=== PATIENT | female | born 1975 | race Caucasian/White ===

== ENCOUNTER 2018-03-14 11:36 | Emergency (ER) | payer OTHER ==
[~2018-03-14] VITALS: Ht 170.2 cm; Wt 95.3 kg
[~2018-03-14 11:36] MED LIST: ALPRAZOLAM2 M2 PO; FUROSEMIDE20 M1 PO; METFORMIN HCL850 M1 PO; SERTRALINE HCL100 MG PO; SPIRONOLACTONE100 M1 PO
--- NOTE | 2018-03-14 12:51 | RADIOLOGY REPORT ---
EXAMINATION: XR ELBOW, RIGHT CLINICAL INFORMATION: Pain status post fall. COMPARISON: Right elbow radiographs 01/29/2014. TECHNIQUE: 4 views right elbow. FINDINGS: There is no acute fracture or dislocation. Joint spaces are maintained. No joint effusion. Soft tissues are unremarkable. IMPRESSION: Unremarkable radiographs right elbow.
[2018-03-14] MEDS ORDERED: IBUPROFEN800 M1 PO (13:49)
--- NOTE | 2018-03-14 13:49 | ED UPPER/LOWER EXTREMITY COMPL ---
History of Present Illness General Chief Complaint: Upper Extremity Injury Stated Complaint: RT ELBOW PAIN XS 1 YEAR FELL YESTERDAY NOW WORSE Source: patient Exam Limitations: no limitations Vital Signs & Intake/Output Vital Signs & Intake/Output Vital Signs Date Time Temp Pulse Resp B/P B/P Pulse O2 O2 Flow FiO2 Mean Ox Delivery Rate 03/14 1407 97.5 79 18 135/65 97 Room Air 03/14 1150 97.5 84 18 120/87 99 Room Air Allergies Coded Allergies: ibuprofen (Severe, GI DISTRESS 10/27/16) ketorolac (Severe, SOB 10/27/16) Reconcile Medications Alprazolam 2 MG TABLET 1 TAB PO BIDP PRN ANXIETY (Reported) Furosemide 20 MG TABLET 1 TAB PO DAILY PRN WATER PILL (Reported) Ibuprofen 800 MG TABLET 1 TAB PO TID pain Metformin HCl 850 MG TABLET 1 TAB PO BID DIABETES (Reported) Sertraline HCl 100 MG TABLET 1 TAB PO DAILY MENTAL HEALTH (Reported) Spironolactone 100 MG TABLET 1 TAB PO DAILY WATER PILL (Reported) Triage Note: 42F FELL TWO DAYS AGO ONTO RIGHT ELBOW, NOW HAS LUMP AND PAIN. HAS BEEN TAKING ALEVE AND TYLENOL WITH SOME RELIEF. REPORTS HITTING HEAD BUT DENIES LOC THINNERS OR HEAD/NECK PAIN. Triage Nurses Notes Reviewed? yes Onset: Abrupt Duration: day(s): (2), constant, continues in ED Timing: recent history Severity: moderate, severe Pain/Injury Location: Right: Elbow. Method of Injury: fall No Modifying Factors: none : No Patient currently breastfeeds: No HPI: 42-year-old female comes into the emergency room for further evaluation of right elbow pain. Patient reports that 2 days ago she fell while going up cement steps onto her right shoulder and right elbow. She reports that she's been expansion a chronic issue with pain in her right shoulder that radiates down to her elbow for about a year. She denies any chest pain shortness of breath. Denies numbness associated symptoms. Comes in with some swelling. Pain with range of motion. She reports that she bumped her head but no loss of consciousness no headache or vomiting. (Nghia Chi) Past History Travel History Traveled to [place] past 21 day No Medical History Any Pertinent Medical History? see below for history Cardiovascular: hypertension Respiratory: SLEEP APNEA Endocrine: CUSHINGS DISEASE Tetanus Vaccine: 04/07/13 Surgical History Surgical History: non-contributory Psychosocial History What is your primary language Amharic Tobacco Use: Current Daily Use Daily Tobacco Use Amount/Type: => 5 Cigarettes daily Family History Hx Contributory? No (Nghia Chi) Review of Systems Review of Systems Constitutional: Reports: no symptoms. EENTM: Reports: no symptoms. Respiratory: Reports: no symptoms. Cardiovascular: Reports: no symptoms. Gastrointestinal/Abdominal: Reports: no symptoms. Genitourinary: Reports: no symptoms. Musculoskeletal: Reports: see HPI. Skin: Reports: no symptoms. Neurological/Psychological: Reports: no symptoms. Hematologic/Endocrine: Reports: no symptoms. Immunological: Reports: no symptoms. All Other Systems: Reviewed and Negative (Nghia Chi) Physical Exam Physical Exam General Appearance: well developed/nourished, mild distress Head: atraumatic Eyes: Bilateral: normal appearance. Ears, Nose, Throat: normal ENT inspection, hearing grossly normal Neck: normal inspection Cardiovascular/Respiratory: no respiratory distress Back: normal inspection Shoulder Right: soft tissue tenderness, limited range of motion Elbow Right: soft tissue tenderness, limited range of motion, soft tissue tenderness distal humerus, soft tissue tenderness proximal humerus Neurologic/Tendon: normal sensation, normal motor functions, normal tendon functions, responds to pain, no evidence tendon injury, no pulse deficit Skin: intact, normal color, warm/dry (Nghia Chi) Progress Differential Diagnosis: contusion, dislocation, fracture, septic arthritis, sprain, tendon injury, tendinitis Plan of Care: Orders Procedure Date/time Status Durable Medical Equipment 03/14 1350 Active Diagnostic Imaging: Viewed by Me: Radiology Read. Discussed w/RAD: Radiology Read. Radiology Impression: PATIENT: TERRY ABDI PRESENT AGE: 42 PATIENT ACCOUNT NO: [id number] : 73 LOCATION: [facility] ORDERING PHYSICIAN: Nghia AHN SERVICE DATE: 03/14/18 EXAM TYPE: RAD - XRY-SHOULDER COMPLETE-RIGHT EXAMINATION: XR SHOULDER, RIGHT CLINICAL INFORMATION : Pain status post fall. Question proximal humeral fracture. COMPARISON: No relevant prior imaging. TECHNIQUE: 4 views right shoulder were obtained. FINDINGS: There is a small focus of coarse calcification along the lateral margin of the humeral head that may represent tendinous calcification of the long head biceps tendon. There is no acute fracture and no dislocation. The glenohumeral joint and acromioclavicular joint are unremarkable. There is preservation of the acromiohumeral interval. Soft tissues are unremarkable. Visualized portions of the right upper hemithorax reveal no abnormal finding. IMPRESSION: Suspected tendinous calcification along the long head biceps tendon. Otherwise unremarkable examination. No acute fracture and no dislocation. DICTATED BY: Marquise Gee MD DATE/TIME DICTATED:03/14/181344 HYDROMETER FINISHER:TRAMAINE DATE/TIME TRANSCRIBED:03/14/181344 CONFIDENTIAL, DO NOT COPY WITHOUT APPROPRIATE AUTHORIZATION. <Electronically signed in Other Vendor System> SIGNED BY: Marquise Gee MD 03/14/18 1350, PATIENT: TERRY ABDI PRESENT AGE: 42 PATIENT ACCOUNT NO: [id number] : 73 LOCATION: [facility] ORDERING PHYSICIAN: Remedios AHN SERVICE DATE: 03/14/18 EXAM TYPE: RAD - XRY-ELBOW 3 OR MORE VIEWS, R EXAMINATION: XR ELBOW, RIGHT CLINICAL INFORMATION: Pain status post fall. COMPARISON: Right elbow radiographs 01/29/2014. TECHNIQUE: 4 views right elbow. FINDINGS: There is no acute fracture or dislocation. Joint spaces are maintained. No joint effusion. Soft tissues are unremarkable. IMPRESSION: Unremarkable radiographs right elbow. DICTATED BY: Marquise Gee MD DATE/ TIME DICTATED:03/14/181246 HYDROMETER FINISHER:TRAMAINE DATE/TIME TRANSCRIBED: 03/14/181246 CONFIDENTIAL, DO NOT COPY WITHOUT APPROPRIATE AUTHORIZATION. < Electronically signed in Other Vendor System> SIGNED BY: Marquise Gee MD 03/14/18 1251 (Nghia Chi) Departure Departure Disposition: HOME OR SELF CARE Condition: Stable Clinical Impression Primary Impression: Contusion of right shoulder Secondary Impressions: Contusion of right elbow Referrals: Patient Has No Primary Care Dr (PCP/Family) Additional Instructions: Ice. ibuprofen as prescribed. rest. f/u with orthopedi dr as needed if not better 5 days return if any other concerns/worsening symptoms. Departure Forms: Customer Survey General Discharge Information Prescriptions: Current Visit Scripts Ibuprofen 1 TAB PO TID #30 TAB (Nghia Chi) PA/OCCUPATIONAL THERAPIST ASSISTANTS Co-Sign Statement Statement: ED Attending supervision documentation- [] I saw and evaluated the patient. I have also reviewed all the pertinent lab results and diagnostic results. I agree with the findings and the plan of care as documented in the PA's/OCCUPATIONAL THERAPIST ASSISTANTS's documentation. [X] I have reviewed the ED Record and agree with the PA's/OCCUPATIONAL THERAPIST ASSISTANTS's documentation. [] Additions or exceptions (if any) to the PAs/OCCUPATIONAL THERAPIST ASSISTANTS's note and plan are summarized below: [] (Corrie TRIPP,Ricardo Veloz) Procedures Splinting Location: right shoulder Manual Alignment Performed: No Pre-Made Type: shoulder immobilizer Splint Applied By: splint applied by me Pre-Proc Neuro Vasc Exam: normal Post-Proc Neuro Vasc Exam: normal (Nghia Chi)
[2018-03-14 14:07] VITALS: BP 135/65
== END 2018-03-14 14:12 ==
LOC: ERH 11:36
DX: S40.011A Contusion of right shoulder, initial encounter (principal); S50.01XA Contusion of right elbow, initial encounter; W19.XXXA Unspecified fall, initial encounter; Y92.9 Unspecified place or not applicable; Y93.9 Activity, unspecified
CPT/HCPCS: 73030-RT; 73080-RT

== ENCOUNTER 2018-03-20 01:52 | Emergency (ER) | payer OTHER ==
[~2018-03-20 01:52] MED LIST changes: +IBUPROFEN800 M1 PO
--- NOTE | 2018-03-20 01:54 | ED AMS/SEIZURE/WEAK/DIZZY ---
History of Present Illness General Chief Complaint: ETOH/Drug Related Complaint Stated Complaint: BIBA ?FALL, +ETOH Source: patient, EMS Exam Limitations: no limitations Vital Signs & Intake/Output Vital Signs & Intake/Output Vital Signs Date Time Temp Pulse Resp B/P B/P Pulse O2 O2 Flow FiO2 Mean Ox Delivery Rate 03/20 0208 96.8 78 18 134/84 99 Allergies Coded Allergies: ibuprofen (Severe, GI DISTRESS 10/27/16) ketorolac (Severe, SOB 10/27/16) Reconcile Medications Alprazolam 2 MG TABLET 1 TAB PO BIDP PRN ANXIETY (Reported) Furosemide 20 MG TABLET 1 TAB PO DAILY PRN WATER PILL (Reported) Ibuprofen 800 MG TABLET 1 TAB PO TID pain Metformin HCl 850 MG TABLET 1 TAB PO BID DIABETES (Reported) Sertraline HCl 100 MG TABLET 1 TAB PO DAILY MENTAL HEALTH (Reported) Spironolactone 100 MG TABLET 1 TAB PO DAILY WATER PILL (Reported) Triage Nurses Notes Reviewed? yes Onset: Gradual Duration: hour(s): Timing: recent history Injury Environment: street Severity: moderate Modifying Factors: Improves With: rest. Associated Symptoms: HEAD ACHE, SHOULDER PAIN HPI: 42 YO WOMAN found by police resting on the road after having been drinking. Per the medics, "She was just lying there resting... She had walked quite a ways from the bar.... She was fine... didn't say she hurt anything... didn't say she was injured..... She walked just fine." Per the patient, she notes right shoulder pain "from tendonitis... I had an xray last week." She also notes that she may have hit her head tonight on the pavement. She denies other injuries, other pain. She denies . She is otherwise well. Past History Travel History Traveled to [place] past 21 day No Medical History Any Pertinent Medical History? see below for history Cardiovascular: hypertension Respiratory: SLEEP APNEA Endocrine: CUSHINGS DISEASE Tetanus Vaccine: 04/07/13 Surgical History Surgical History: non-contributory Psychosocial History What is your primary language Ugandan Family History Hx Contributory? No Review of Systems Review of Systems Constitutional: Reports: no symptoms. EENTM: Reports: no symptoms. Respiratory: Reports: no symptoms. Cardiovascular: Reports: no symptoms. GI: Reports: no symptoms. Genitourinary: Reports: no symptoms. Musculoskeletal: Reports: no symptoms. Skin: Reports: no symptoms. Neurological/Psychological: Reports: no symptoms. Hematologic/Endocrine: Reports: no symptoms. Immunologic/Allergic: Reports: no symptoms. All Other Systems: Reviewed and Negative Physical Exam Physical Exam General Appearance: well developed/nourished, mild distress Head: left parietal hematoma, 3x2cm. no significant tenderness to palpation. Eyes: Bilateral: normal appearance, PERRL, EOMI. Ears, Nose, Throat: normal pharynx, normal ENT inspection Neck: normal inspection, supple, full range of motion Respiratory: normal breath sounds, chest non-tender, no respiratory distress, quiet respiration, lungs clear Cardiovascular: regular rate/rhythm Gastrointestinal: normal bowel sounds, soft, non-tender, no organomegaly Back: normal inspection, normal range of motion Extremities: right shoulder musculature tender to palpation. ROM is normal. no deformity Neurologic/Psych: no motor/sensory deficits, awake, slurred speech Reflexes: 1+: bicep (R), bicep (L), knee (R), knee (L). Skin: intact, normal color, warm/dry Core Measures ACS in differential dx? No CVA/TIA Diagnosis No Sepsis Present: No Sepsis Focused Exam Completed? No Progress Differential Diagnosis: alcohol intoxication, dehydration, drug intoxication, electrolyte imbalance Plan of Care: Orders Procedure Date/time Status URINE DRUG SCREEN FOR ER ONLY 03/20 154 Complete HUMAN BETA HCG SCREEN 03/20 154 Complete ETHANOL 03/20 154 Complete COMPREHENSIVE METABOLIC PANEL 03/20 154 Complete CBC WITHOUT DIFFERENTIAL 03/20 154 Complete Laboratory Tests 03/20/18 0241: Urine Opiates Screen < 100, Methadone Screen > 735 H, Barbiturate Screen < 60, Ur Phencyclidine Scrn 6.10, Amphetamines Screen 115, U Benzodiazepines Scrn > 800 H, Urine Cocaine Screen < 50, Urine Cannabis Screen 50.20 H 03/20/18 0200: Anion Gap 19 H, Estimated GFR > 60, BUN/Creatinine Ratio 19.0, Glucose 80, Calcium 9.1, Total Bilirubin 0.7, AST 29, ALT 42, Alkaline Phosphatase 66, Total Protein 7.6, Albumin 4.7, Globulin 2.9, Albumin/Globulin Ratio 1.6, Total Beta HCG NEGATIVE, CBC w Diff MAN DIFF ORDERED, RBC 3.97 L, MCV 100.1 H, MCH 34.0 H, MCHC 34.0, RDW 13.4, MPV 7.8, Gran % 54.1, Lymphocytes % 39.4, Monocytes % 5.0, Eosinophils % 1.1, Basophils % 0.4, Absolute Granulocytes 5.5, Segmented Neutrophils 50, Absolute Lymphocytes 4.0 H, Lymphocytes 49, Absolute Monocytes 0.5, Absolute Eosinophils 0.1, Basophils 1, Absolute Basophils 0, Platelet Estimate ADEQUATE, Anisocytosis 1+, Stomatocytes 1+, Serum Alcohol 289.0 Diagnostic Imaging: Viewed by Me: Radiology Read, CT Scan. Discussed w/RAD: Radiology Read, CT Scan. Radiology Impression: PATIENT: TERRY ABDI PRESENT AGE: 42 PATIENT ACCOUNT NO: [id number] : 73 LOCATION: ER ORDERING PHYSICIAN: Marvin Patricio MD SERVICE DATE: 03/20/18 EXAM TYPE: RAD - XRY-SHOULDER COMPLETE-RIGHT EXAMINATION: XR SHOULDER, RIGHT CLINICAL INFORMATION: Pain COMPARISON: 03/14/2018 TECHNIQUE: Three views of the right shoulder. FINDINGS: Glenohumeral alignment is anatomic. No acute fracture is seen. Soft tissue calcifications identified adjacent to the humeral head on the prior examination are not as well seen on the current views. The acromioclavicular joint is intact. IMPRESSION: No acute findings. DICTATED BY: Michael Belle MD DATE/TIME DICTATED:03/20/18339 SMALL STOCK FACER:TRAMAINE DATE/TIME TRANSCRIBED:03/20/18339 CONFIDENTIAL, DO NOT COPY WITHOUT APPROPRIATE AUTHORIZATION. <Electronically signed in Other Vendor System> SIGNED BY: Michael Belle MD 03/20/18344, PATIENT: TERRY ABDI PRESENT AGE: 42 PATIENT ACCOUNT NO: [id number] : 73 LOCATION: ER ORDERING PHYSICIAN: Marvin Patricio MD SERVICE DATE: EXAM TYPE: CAT - CT CERV SPINE WO IV CONTRAST; CT HEAD WO IV CONTRAST EXAMINATION: NONCONTRAST HEAD CT NONCONTRAST CERVICAL SPINE CT INDICATION INFORMATION: EtOH, head injury COMPARISON: None TECHNIQUE: Separate noncontrast CT examinations of the head and cervical spine were performed. Coronal head CT images and coronal and sagittal cervical spine images were created at the technologist workstation. DLP: 647.92, 418.10 mGy-cm FINDINGS: Head: There is no evidence of acute intracranial hemorrhage or territorial infarction. No abnormal mass-effect or midline shift is seen. Espinoza to white matter differentiation is well preserved. No extra-axial fluid collections are identified. The ventricles are normal in size. There is no abnormal attenuation within the brain parenchyma. The osseous structures and soft tissues are normal. Small mucous retention cyst is noted in the sphenoid sinus. The mastoid air cells are well- aerated. Cervical spine: There is anatomic alignment of the vertebral bodies and posterior elements. Vertebral body heights and intervertebral disc spaces are maintained. No evidence of acute fracture. No prevertebral soft tissue swelling. Visualized portions of the lung apices are unremarkable. The thyroid gland is unremarkable. IMPRESSION: No acute traumatic findings identified in the head or cervical spine. DICTATED BY: Michael Belle MD DATE/TIME DICTATED:03/20/18333 SMALL STOCK FACER:TRAMAINE DATE/TIME TRANSCRIBED:03/20/18333 CONFIDENTIAL, DO NOT COPY WITHOUT APPROPRIATE AUTHORIZATION. <Electronically signed in Other Vendor System> SIGNED BY: Michael Belle MD 03/20/18342 Initial ED EKG: none Departure Departure Disposition: HOME OR SELF CARE Condition: Stable Clinical Impression Primary Impression: Alcohol intoxication Secondary Impressions: Head injury, Right shoulder pain Referrals: Patient Has No Primary Care Dr (PCP/Family) Departure Forms: Customer Survey General Discharge Information Comments 03/20/18, 4:15am... pt resting comfortably... benign ct and xray, elevated etoh noted, uds with methadone/benzos... discussed risks of polypharmacy w/ alcohol. pt going home in company of mother. close follow up advised
[2018-03-20 02:29] LABS: ABSOLUTE BASOPHIL COUNT 0 /CUMM (0.0-0.2); ABSOLUTE EOSINOPHIL COUNT 0.1 /CUMM (0.0-0.7); ABSOLUTE GRANULOCYTE CT 5.5 /CUMM (1.4-6.5); ABSOLUTE MONOCYTE COUNT 0.5 /CUMM (0.10-0.60); BASOPHIL % 0.4 % (0.0-2.0); EOSINOPHIL % 1.1 % (0-5); GRANULOCYTE % 54.1 % (42.2-75.2); HEMATOCRIT 39.7 % (37-47); MEAN CORPUSCULAR VOLUME 100.1 FL (81.0-99.0); MEAN PLATELET VOLUME 7.8 FL (7.4-10.4); PLATELET COUNT 275 /CUMM (130-400); RBC DISTRIBUTION WIDTH 13.4 % (11.5-14.5); RED BLOOD CELL CT 3.97 /CUMM (4.20-5.40); WHITE BLOOD CELL COUNT 10.1 /CUMM (4.8-10.8)
--- NOTE | 2018-03-20 03:43 | CT SCAN REPORT ---
EXAMINATION: NONCONTRAST HEAD CT NONCONTRAST CERVICAL SPINE CT INDICATION INFORMATION: EtOH, head injury COMPARISON: None TECHNIQUE: Separate noncontrast CT examinations of the head and cervical spine were performed. Coronal head CT images and coronal and sagittal cervical spine images were created at the technologist workstation. DLP: 647.92, 418.10 mGy-cm FINDINGS: Head: There is no evidence of acute intracranial hemorrhage or territorial infarction. No abnormal mass-effect or midline shift is seen. Espinoza to white matter differentiation is well preserved. No extra-axial fluid collections are identified. The ventricles are normal in size. There is no abnormal attenuation within the brain parenchyma. The osseous structures and soft tissues are normal. Small mucous retention cyst is noted in the sphenoid sinus. The mastoid air cells are well-aerated. Cervical spine: There is anatomic alignment of the vertebral bodies and posterior elements. Vertebral body heights and intervertebral disc spaces are maintained. No evidence of acute fracture. No prevertebral soft tissue swelling. Visualized portions of the lung apices are unremarkable. The thyroid gland is unremarkable. IMPRESSION: No acute traumatic findings identified in the head or cervical spine.
--- NOTE | 2018-03-20 03:45 | RADIOLOGY REPORT ---
EXAMINATION: XR SHOULDER, RIGHT CLINICAL INFORMATION: Pain COMPARISON: 03/14/2018 TECHNIQUE: Three views of the right shoulder. FINDINGS: Glenohumeral alignment is anatomic. No acute fracture is seen. Soft tissue calcifications identified adjacent to the humeral head on the prior examination are not as well seen on the current views. The acromioclavicular joint is intact. IMPRESSION: No acute findings.
[2018-03-20 04:17] VITALS: BP 142/83
== END 2018-03-20 04:19 ==
LOC: ERH 01:52
PROVIDERS: Pediatrics
DX: S09.90XA Unspecified injury of head, initial encounter (principal); M25.511 Pain in right shoulder; F10.129 Alcohol abuse with intoxication, unspecified; X58.XXXA Exposure to other specified factors, initial encounter; Y92.9 Unspecified place or not applicable; Y93.9 Activity, unspecified
CPT/HCPCS: 73030-RT; 80307; G0480